=== PATIENT | female | born 1950 | race Caucasian/White ===

== ENCOUNTER → 2016-12-31 | Day surgery (SDC) | payer OTHER ==
[~2016-12-31] VITALS: Ht 154.9 cm; Wt 59.1 kg
[~2016-12-31] MED LIST: ACETAMINOPHEN 500 MG CPLT PO PRN; ANAS1 PO; APREPITANT 40 MG CAP ONE; ATROPINE SULFATE 1% OPHT SOLN 2 ML BTL ONE; ATROPINE SULFATE 1% OPHT SOLN 5 ML BTL LEFT EYE SCH; BALANCED SALT SOLN OPHT IRRIG 15 ML BTL ONE; CHLORHEXIDINE GLUCONATE 2 % 1 PACK (2 CLOTHS) TOPICAL PRN; CYCLOPENTOLATE HCL 1% OPHT SOLN 2 ML BTL LEFT EYE SCH; DEXAMETHASONE SOD PHOS 4 MG/ML VIAL ONE; DO NOT ADM ANY ANTICOAGULANT DRUGS PRN; EPINEPHrine HCL (1:1000) 1 MG/ML VIAL ONE; FAMOTIDINE 20 MG/2 ML VIAL ONE; INSULIN HUMAN REGULAR 1,000 UNITS/10 ML VIAL SQ PRN; LACTATED RINGER'S 1000 ML IV PRN; LEXA5TAB PO; METOPROLOL TARTRATE 25 MG TAB PO PRN; MIDAZOLAM HCL 2 MG/2 ML VIAL IV ONE; ONDANSETRON HCL 4 MG/2 ML VIAL IM PRN; ONDANSETRON HCL 4 MG/2 ML VIAL IV PRN; PHENYLEPHRINE HCL 2.5% OPTH SOLN 2 ML BTL LEFT EYE SCH; POVIDONE IODINE 5% (ANTISEPSIS KIT) 4 APPLICATIONS EACH NARE PRN; SODIUM CHLORID 0.9% 500 ML IV PRN; STERILE WATER FOR INJECTION 20 ML VIAL ONE; TOBRAMYCIN/DEXAMETHASONE OPTH OINT 3.5 GM TUBE ONE; TRIAMCINOLONE ACETONIDE/PF 40 MG/ML OPTH VIAL ONE; TROPICAMIDE 1% OPHT SOLN 15 ML BTL LEFT EYE SCH; VITA1000 PO; VITA500S3 SL; ceFAZolin INJ 1,000 MG VIAL ONE; oxyCODONE/ACETAMINOPHEN 5 MG/325 MG TAB PO PRN
[2016-12-31 07:19] LABS: AUTOMATED NEUTROPHIL # 2.9 TH/MM3 (1.8-7.7); BASOPHIL # 0.1 TH/MM3 (0-0.2); BASOPHIL % 0.9 % (0.0-2.0); EOSINOPHIL # 0.3 TH/MM3 (0-0.4); EOSINOPHIL % 4.2 % (0.0-4.0); HEMATOCRIT 44.2 % (35.0-46.0); HEMO FLAGS DIFF FINAL; LYMPH % 39.3 % (9.0-44.0); LYMPHOCYTE # 2.5 TH/MM3 (1.0-4.8); MEAN CELL VOLUME 81.8 FL (80.0-100.0); MEAN CORPUSCULAR HEMOGLOBIN 27.4 PG (27.0-34.0); MEAN CORPUSCULAR HGB CONC 33.6 % (32.0-36.0); MONO % 10.1 % (0.0-8.0); NEUT % 45.5 % (16.0-70.0); PLATELET COUNT 169 TH/MM3 (150-450); RED CELL DISTRIBUTION WIDTH 13.1 % (11.6-17.2); WHITE BLOOD COUNT 6.4 TH/MM3 (4.0-11.0)
--- NOTE | 2016-12-31 10:49 | MP ---
cc: MARYANA SMITH M.D. DATE OF SURGERY 12/31/2016 PREOPERATIVE DIAGNOSIS Full-thickness macular hole left eye. POSTOPERATIVE DIAGNOSIS Full-thickness macular hole left eye. PROCEDURE Trans pars plana vitrectomy with internal limiting membrane peel, gas fluid exchange, left eye. ANESTHESIA General laryngeal mask anesthesia INDICATIONS Ms. Cervantes is a 66-year-old female who developed blurred central vision in her left eye. She was seen on 12/02/16 and diagnosed with a full-thickness macular hole. This was confirmed on ocular coherence tomography. She wished to proceed electively with surgery to try and close the macular hole and improve her visual functioning which was down to 20/200. The risks and benefits of surgery were discussed with the patient including the fact that since she was phakic, she would probably have a accelerating cataract formation after the surgery. She was motivated to proceed and informed consent was obtained. No guarantee was made as to visual outcome. PROCEDURE NOTE She was brought to [facility] operating room one and placed in the appropriate anesthesia monitoring devices. She was placed under general anesthesia using a laryngeal mask. The left eye was identified as the operative site and prepped and draped in the usual sterile fashion. A lid speculum was placed. A time-out was called with the surgical team agreeing to the surgical site and planned procedure. Using the Kevin 23-gauge vitrectomy system, the trocar cannulas were placed 4 mm posterior to the limbus after first displacing the conjunctiva. The first was placed at approximately 3:15 o'clock and verified to be in the posterior chamber. An infusion cannula was affixed to it and it was turned on. Two additional trocar cannulas were used at 10 and 2 o'clock. A small amount of Kenalog was injected into the posterior chamber to help visualize the vitreous. The eye was entered with the Endo cloth doubling machine operator light pipe and vitrectomy cutter. Using a flat contact lens, a core vitrectomy was carried out. The posterior hyaloid was elevated using both the vitrectomy cutter and the soft tipped linear extrusion needle. It was then removed and the flat lens was replaced with the Biome wide angle viewing system to finish the peripheral vitrectomy. Plugs were placed back in the cannulas and the fundus was inspected with the indirect ophthalmoscope and scleral depression. No retinal breaks were found. Using the soft tipped linear extrusion needle and light pipe and the biome wide angle viewing system, an air-fluid exchange was performed. The air was then exchanged out for a 15% mixture of C3F8 gas. Plugs were placed back in the cannulas and they were removed one by one with tamponade of the site with a cotton swab and diathermy to the overlying conjunctiva. This left the eye formed and with good pressure and no visible air leaks. Atropine drops were placed on the cornea and then subconjunctival actions of Ancef 125 mg in half cc and Decadron 2 mg in half cc were given. The lid speculum was removed and the patient was undraped. TobraDex ointment was placed on the cornea and the left eye was patched and shielded. The patient had the laryngeal mask removed in the room and was returned to recovery laying on her right side. When awake and alert, she will start face-down positioning as discussed before surgery. MD SHAYE Suazo/LISA /10:12 AM /10:37 AM
[2016-12-31 11:15] VITALS: BP 126/80; PULSE 82; RESP 18; TEMP 97.2; O2SAT 97
--- NOTE | 2016-12-31 11:23 | EKG ---
Date Performed: 12/31/2016 Time Performed: 07:13:03 PTAGE: 66 years EKG: Sinus rhythm NORMAL ECG NO PREVIOUS TRACING DOCTOR: Hank Hernandez Interpretating Date/Time 12/31/2016 11:21:46
== END | disposition home or self-care (01) ==
LOC: HSDC 06:21
PROVIDERS: ATTEND Ophthalmology
DX: H35.342 Macular cyst, hole, or pseudohole, left eye (principal); F41.9 Anxiety disorder, unspecified; Z01.810 Encounter for preprocedural cardiovascular examination
CPT/HCPCS: 00145; 67025; 67042; 85025; 93005; J0171; J0690; J1100; J3300; J7120; J8501; J2250; J3010